=== PATIENT | male | born 1975 | race Caucasian/White ===

== ENCOUNTER 2024-12-19 16:32 | Inpatient (IN) | payer SELFPAY ==
[~2024-12-19] VITALS: Ht 167.6 cm; Wt 54.1 kg
[2024-12-19 16:45] VITALS: O2SAT 98
[2024-12-19] MEDS ORDERED: ALBUTEROL 6.7GM HFA INHALER ORI ONE (21:00)
[2024-12-19] MEDS: SODIUM CHLORIDE 0.9% (SEPSIS BOLUS) IV ONE (21:03)
[2024-12-19] MEDS: CEFTRIAXONE 1GM/50ML 50 ML IV ONE (21:04)
[2024-12-19 21:37] LABS: HEMATOCRIT. 39.4 % (42.0-52.0); HEMOGLOBIN. 12.9 g/dL (14.0-18.0); MEAN PLATELET VOLUME 8.5 fl (7.4-10.4); PLATELET 460 x1000/uL (130-400); RED BLOOD CELL COUNT 4.60 mill/uL (4.7-6.1); RED CELL DISTRIBUTION WIDTH 12.7 % (11.6-14.6)
[2024-12-19] MEDS: AZITHROMYCIN 500 MG TABLET PO ONE (21:45)
[2024-12-19] MEDS: VANCOMYCIN 1G PREMIX 200 ML IV ONE (21:46)
[2024-12-19 21:47] LABS: INR 0.9
[2024-12-19 21:57] LABS: CREATININE 0.7 mg/dL (0.6-1.3); UREA NITROGEN BLOOD 17 mg/dL (9-23)
[2024-12-19 21:59] LABS: ASPARTATE AMINOTRANSFERASE 17 IU/L (<34); BILIRUBIN DIRECT 0.1 mg/dL (<=3.0); BILIRUBIN TOTAL 0.4 mg/dL (0.1-1.0); LYMPHOCYTES % MANUAL 22.0 % (20.0-50.0); MONOCYTES % MANUAL 5.0 % (2.0-8.0); NEUTROPHILS % MANUAL 73.0 % (45.0-75.0); PLATELET ESTIMATE NORMAL; PROTEIN TOTAL 6.8 g/dL (6.0-8.3)
[2024-12-19] MEDS: MORPHINE SULFATE 4 MG/ML INJ (FOR IV/IM USE) IV ONE (22:48)
[2024-12-19 23:51] LABS: CLARITY URINE CLEAR (CLEAR); COLOR URINE YELLOW (YELLOW); GLUCOSE URINE 3+ (NEGATIVE); KETONES URINE 4+ (NEGATIVE); LEUKOCYTE ESTERASE URINE NEGATIVE (NEGATIVE); NITRITE URINE NEGATIVE (NEGATIVE); OCCULT BLOOD URINE NEGATIVE (NEGATIVE); PH URINE 5.5 (4.5-8.0); PROTEIN URINE NEGATIVE (NEGATIVE); SPECIFIC GRAVITY URINE 1.026 (1.005-1.030); UROBILINOGEN URINE 0.2 E.U./dL (0.2-1.0)
[2024-12-20 00:53] LABS: BACTERIA URINE TRACE; RBC URINE NONE SEEN /hpf (0-2); SQUAMOUS EPITHELIAL CELL URINE NONE SEEN /lpf (RARE/1+); WBC URINE NONE SEEN /hpf (0-2)
[2024-12-20 03:35] VITALS: BP 124/82; PULSE 82; RESP 17; TEMP 36.7516
[2024-12-20 08:00] VITALS: BP 110/68; PULSE 75; RESP 16; TEMP 36.5; O2SAT 100
[2024-12-20] MEDS ORDERED: HYDROCODONE/ACETAMINOPHEN 5/325MG TABLET PO PRN (09:45)
[2024-12-20] MEDS ORDERED: NALOXONE HCL 0.4MG/ML VIAL IV PRN (10:00)
[2024-12-20] MEDS ORDERED: DEXTROSE 50% WATER 50ML SYRINGE IV PRN (10:15)
[2024-12-20] MEDS: INSULIN GLARGINE 100 UNITS/ML SUBCUT SCH ×2 (11:00→22:20)
[2024-12-20] MEDS: BLOOD SUGAR DIAGNOSTIC STRIP TEST SCH (11:45)
[2024-12-20 12:00] VITALS: BP 128/83; PULSE 78; RESP 17; TEMP 36.6; O2SAT 100
[2024-12-20] MEDS: PIPERACILLIN/TAZO 3.375G/50ML 50 ML IV SCH (14:19)
[2024-12-20] MEDS: INSULIN LISPRO 100 UNITS/ML SUBCUT SCH (14:31)
[2024-12-20 16:00] VITALS: BP 106/77; PULSE 78; RESP 17; TEMP 36.7; O2SAT 100
[2024-12-20] MEDS: VANCOMYCIN 1.5GM PMX (XELLIA) 300 ML IV SCH (19:25)
[2024-12-20 20:00] VITALS: BP 100/66; PULSE 77; RESP 16; TEMP 35.6; O2SAT 98
[2024-12-21] VITALS: BP 87/55; PULSE 78; RESP 16; TEMP 36.4; O2SAT 98
[2024-12-21 04:00] VITALS: BP 105/72; PULSE 76; RESP 17; TEMP 36.5; O2SAT 98
[2024-12-21] MEDS: SODIUM CHLORIDE 0.9% 1,000 ML IV SCH (05:30)
[2024-12-21] MEDS: VANCOMYCIN 1.25GM/250ML IV SCH (05:42)
[2024-12-21 08:00] VITALS: BP 119/83; PULSE 77; RESP 16; TEMP 36.4; O2SAT 100
[2024-12-21] MEDS ORDERED: SULF1TAB48 MT (10:11)
[2024-12-21] MEDS ORDERED: INSU100I28 SQ (10:11)
[2024-12-21] MEDS ORDERED: AMOX1TAB16 MT (10:11)
[2024-12-21 12:00] VITALS: BP 131/87; PULSE 82; RESP 16; TEMP 36.2; O2SAT 96
[2024-12-21 13:58] LABS: BASOPHILS % 0.6 % (0.0-2.0); EOSINOPHILS % 0.6 % (0.0-5.0); HEMATOCRIT. 40.5 % (42.0-52.0); HEMOGLOBIN. 13.3 g/dL (14.0-18.0); LYMPHOCYTES % 17.5 % (20.0-50.0); MEAN PLATELET VOLUME 8.5 fl (7.4-10.4); MONOCYTES % 8.7 % (2.0-8.0); NEUTROPHILS % 72.6 % (40.0-76.0); PLATELET 518 x1000/uL (130-400); RED BLOOD CELL COUNT 4.71 mill/uL (4.7-6.1); RED CELL DISTRIBUTION WIDTH 13.1 % (11.6-14.6)
[2024-12-21 14:10] LABS: UREA NITROGEN BLOOD 7 mg/dL (9-23)
[2024-12-21 14:11] LABS: CREATININE 0.4 mg/dL (0.6-1.3)
[2024-12-21 16:00] VITALS: BP 121/84; PULSE 78; RESP 14; TEMP 36.6; O2SAT 98
[2024-12-21 16:50] VITALS: BP 121/84; PULSE 78; RESP 19; TEMP 97.8
== END 2024-12-21 16:45 | disposition home or self-care (01) | DRG 720 ==
LOC: ER 16:32 → 5WST 23:08 → EDBEDREQ 12-20 → EDBEDREQTM 12-20 → ENRESERV 12-20 01:57
PROVIDERS: ADMIT Internal Medicine; ATTEND Internal Medicine
DX: A41.9 Sepsis, unspecified organism (principal); S81.801A Unspecified open wound, right lower leg, initial encounter; L03.115 Cellulitis of right lower limb; E11.65 Type 2 diabetes mellitus with hyperglycemia; S70.311A Abrasion, right thigh, initial encounter; Z79.4 Long term (current) use of insulin; X58.XXXA Exposure to other specified factors, initial encounter; W18.30XA Fall on same level, unspecified, initial encounter; Y93.89 Activity, other specified; Y92.89 Other specified places as the place of occurrence of the external cause; Y99.8 Other external cause status
CPT/HCPCS: 36415; 73552; 80048; 80076; 80202; 81003; 82962; 83036; 83605; 83880; 84145; 85025; 93971; 96365; 96367; 96375; 99291; A4606; J0696; J1815; J2270; J2543; J3373; J7030